=== PATIENT | male | born 1990 | race Caucasian/White ===

== ENCOUNTER 2017-11-24 20:58 | Inpatient (IN) | payer SELFPAY ==
[~2017-11-24 20:58] MED LIST: ISOVUE-370 76%-LOCM 1 ML ONE
[2017-11-24 21:27] LABS: #Basophils 0.1 thou/uL (0.0-0.2); #Lymphocytes 2.1 thou/uL (1.20-3.40); #Monocytes 0.7 thou/uL (0.11-0.59); #Neutrophils 7.7 thou/uL (1.40-6.50); %Basophils 0.5 % (0.0-1.0); %Eosinophils 0.3 % (0.0-10.0); %Monocytes 6.7 % (0.0-10.0); %Neutrophils 72.5 % (42.0-75.0); Mean Corpuscular HGB CONC 34.3 g/dL (32.0-36.0); Mean Corpuscular Hemoglobin 29.2 pg (27.0-31.0); Mean Corpuscular Volume 85.1 fl (80.0-94.0); Mean Platelet Volume 9.8 fL (7.4-10.4); Platelet Count 143 thou/uL (130-400); RBC Distribution Width 13.4 % (11.5-14.5); Red Blood Cell (RBC) Count 4.78 mill/uL (4.70-6.10); White Blood Cell (WBC) Count 10.6 thou/uL (4.8-10.8)
[2017-11-24 21:33] LABS: INR-International Normal Ratio 1.1; PTT 24.3 SEC (22.9-36.1); Prothrombin Time 14.7 SEC (12.0-14.7)
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
[2017-11-24 21:39] LABS: ALT (SGPT) 14 U/L (8-55); AST (SGOT) 20 U/L (5-34); Albumin 4.3 g/dL (3.5-5.0); Alcohol 218 mg/dL (Less than 10); Alkaline Phosphatase 58 U/L (40-150); Anion Gap 12 mmol/L (10-20); BUN (Urea Nitrogen) 12 mg/dL (8.9-20.6); Bilirubin, Total 0.4 mg/dL (0.2-1.2); Calc. Creatinine Clearance 0 mL/min (70-130); Calcium 8.8 mg/dL (7.8-10.44); Carbon Dioxide 26 mmol/L (22-29); Chloride 105 mmol/L (98-107); Estimated GFR-MDRD Greater than 90; Glucose 94 mg/dL (70-105); Lipase 26 U/L (8-78); Potassium 3.8 mmol/L (3.5-5.1); Protein, Total 7.3 g/dL (6.0-8.3); Sodium 139 mmol/L (136-145)
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
[2017-11-25] MEDS ORDERED: Ondansetron ODT 4 MG TAB PO PRN (00:20)
[2017-11-25] MEDS ORDERED: hydrALAZINE 20 MG/ML VIAL SLOW IVP PRN (00:20)
[2017-11-25] MEDS ORDERED: Ondansetron HCl/PF 4 MG/2 ML Vial IVP PRN ×2 (00:20→10:43)
[2017-11-25] MEDS ORDERED: Dextrose 5% in Water 1,000 ML IV PRN (00:20)
[2017-11-25] MEDS ORDERED: Morphine 4 MG/ML Carpuject IVP PRN (00:20)
[2017-11-25] MEDS ORDERED: Dextrose 50% Abboject 50 ML SYRINGE SLOW IVP PRN (00:20)
[2017-11-25] MEDS ORDERED: Morphine 4 MG/ML VIAL SLOW IVP PRN ×2 (00:26)
[2017-11-25 02:08] VITALS: BMI 25.8
[2017-11-25] MEDS: Acetaminophen 500 MG TAB PO SCH ×4 (02:14→17:04)
[2017-11-25] MEDS: Sodium Chloride 0.9% 1,000 ML IV SCH ×3 (02:15→17:32)
[2017-11-25 05:39] LABS: #Lymphocytes 2.5 thou/uL (1.20-3.40); #Neutrophils 7.5 thou/uL (1.40-6.50); %Basophils 0.3 % (0.0-1.0); %Eosinophils 0.3 % (0.0-10.0); %Lymphocytes 22.2 % (21.0-51.0); %Neutrophils 68.1 % (42.0-75.0); Hemoglobin 13.8 g/dL (14.0-18.0); Mean Corpuscular HGB CONC 34.6 g/dL (32.0-36.0); Mean Corpuscular Hemoglobin 29.4 pg (27.0-31.0); Mean Corpuscular Volume 84.9 fl (80.0-94.0); Mean Platelet Volume 9.7 fL (7.4-10.4); Platelet Count 126 thou/uL (130-400); RBC Distribution Width 13.6 % (11.5-14.5); Red Blood Cell (RBC) Count 4.68 mill/uL (4.70-6.10); White Blood Cell (WBC) Count 11.1 thou/uL (4.8-10.8)
[2017-11-25] MEDS: CEFAZOLIN 1 GM in Sodium Chloride 0.9% 100 ML IVPB SCH ×2 (05:51→15:49)
[2017-11-25] MEDS: Ketorolac Tromethamine 30 MG/ML VIAL IVP SCH ×3 (05:52→16:57)
[2017-11-25 06:02] LABS: Anion Gap 14 mmol/L (10-20); BUN (Urea Nitrogen) 12 mg/dL (8.9-20.6); Calc. Creatinine Clearance 183 mL/min (70-130); Calcium 8.7 mg/dL (7.8-10.44); Carbon Dioxide 22 mmol/L (22-29); Chloride 109 mmol/L (98-107); Estimated GFR-MDRD Greater than 90; Glucose 85 mg/dL (70-105); Sodium 141 mmol/L (136-145)
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
[2017-11-25] MEDS ORDERED: Famotidine/PF 20 mg/2ml Vial SLOW IVP SCH (09:00)
[2017-11-25] MEDS ORDERED: HYDROmorphone 0.5 MG/0.5 ML SYRINGE ONE (10:02)
[2017-11-25] MEDS ORDERED: Fentanyl 100 MCG/2 ML VIAL ONE (10:02)
[2017-11-25] MEDS ORDERED: Neomycin-Polymyxin 1 ML AMP ONE (10:11)
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
[2017-11-25] MEDS ORDERED: Promethazine HCl 25 MG/ML VIAL SLOW IVP PRN (10:43)
[2017-11-25] MEDS ORDERED: Promethazine HCl 25 MG/ML VIAL IM PRN (10:43)
[2017-11-25] MEDS ORDERED: HYDROmorphone 2 MG/ML VIAL SLOW IVP PRN (10:43)
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
[2017-11-25] MEDS ORDERED: Bupivacaine HCl 0.5%/Epinephrine 1:200,000/PF 30 ml Vial ONE (11:15)
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
[2017-11-25] MEDS ORDERED: Ketorolac Tromethamine 30 MG/ML VIAL ONE (12:04)
[2017-11-25] MEDS ORDERED: PROPOFOL 200 MG/20 ML VIAL ONE (12:04)
[2017-11-25] MEDS ORDERED: Succinylcholine Chloride 20 MG/ML 10 ml SYRINGE FS ONE (12:04)
[2017-11-25] MEDS ORDERED: Lidocaine 1% PF 5 ML VIAL ONE (12:04)
[2017-11-25] MEDS ORDERED: Dexamethasone 20 MG/5 ML VIAL ONE (12:04)
--- NOTE | 2017-11-25 12:59 | OP ---
DATE OF OPERATION: 11/25/2017 PREOPERATIVE DIAGNOSIS: Laceration of the anterior aspect of the left knee, laceration is stellate, measured approximately 5 cm in length. POSTOPERATIVE DIAGNOSIS: Laceration of the anterior aspect of the left knee, laceration is stellate, measured approximately 5 cm in length. The laceration extending into the prepatellar bursa, but not into the knee joint. PROCEDURE: Irrigation and debridement of anterior left knee wound with primary closure of 5 cm wound . SURGEON: Petr Solorio M.D. ANESTHESIA: General. TECHNIQUE: The patient was given preoperative IV antibiotics, taken to the operating room, placed in supine position. Satisfactory general anesthesia was performed. Anterior aspect of the left knee w as sterilely prepped and draped in usual fashion. The injured portions of the skin edges were remove d sharply with scissors and scalpel. There were some areas of the prepatellar bursa that was also qu estionable and was removed sharply. The wound did not go into the knee joint. The wound was then co piously irrigated with antibiotic solution using the high-speed x ray technologist and the wound was then clos ed using #1 Vicryl for the fat and subcutaneous tissue, and skin was closed with 3-0 Rapide. The wou nd was infiltrated with 30 mL 0.5% Marcaine with epinephrine. Sterile dressing was applied. The pat ient was awakened, extubated, and transferred to the recovery room in stable condition. ESTIMATED BLOOD LOSS: 30 mL COMPLICATIONS: None. Patient will be able to be discharged later today. DISCHARGE MEDICATIONS: Augmentin 875 mg 1 twice a day, #15; [place] 10 one every 6 hours as needed for pain, #40. Follow up in my office in 2 weeks.
[2017-11-25 20:53] VITALS: BP 106/67; TEMP 97.9
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
--- NOTE | 2017-11-27 12:50 | PQF ---
Ike Mcgowan WADE W MD [id number] SURG B- [id number] CLINICAL DOCUMENTATION CLARIFICATION FORM: POST DISCHARGE DATE: 11/27/2017 ATTN: Dr. Solorio Please exercise your independent, professional judgment in responding to the clarification form. Clinical indicators are provided on the bottom of this form for your review Please check appropriate box(s): [ ] Excisional Debridement: [ ] Excised [ ] Cut away [ ] Other: Depth / layer: (deepest layer of debridement): [ ] Skin[ ] SubQ Tissue [ ] Bursa [ ] Fascia [ ] Muscle [ ] Tendon [ ] Bone Appearance of wound: (e.g., down to fresh bleeding tissue, etc.)___ Margins: (please specify): / x x Instruments used: [ ] Scissors [ ] Scalpel [ ] Curette [ ] Soft tissue clipper [ ] Other: [ ] Non-excisional Debridement: (Removal by flushing, brushing, chemical, or washing) Depth / layer: (deepest layer of debridement): [ ] Skin[ ] Subcutaneous [ ] Fascia [ ] Muscle [ ] Tendon [ ] Bone [ ] Other procedure diagnosis (please specify) [ ] Unable to determine For continuity of documentation, please document condition throughout progress notes and discharge summary. Thank You. CLINICAL INDICATORS - SIGNS / SYMPTOMS / LABS Per OP report: The injured portions of the skin edges were removed sharply with scissors and scalpel. There were some areas of the prepatellar bursa that was also questionable and was removed sharply. RISK FACTORS Per OP report: Laceration of anterior aspect of the left knee extending into the prepatellar bursa. TREATMENTS: Per OP report: Irrigation and debridement of anterior left knee wound with primary closure of 5 cm wound. (This form is maintained as a part of the permanent medical record) 2014 [employer]. All Rights Reserved Farhana [email or web address] [phone] ANEUDY
== END 2017-11-25 18:15 | disposition home or self-care (01) | DRG 989 ==
LOC: ERS 20:58 → SURG B 11-25 01:39
PROVIDERS: ADMIT Specialist; ATTEND Specialist
PROC: 0MBP0ZZ Excision of Left Knee Bursa and Ligament, Open Approach (ICD-10-PCS; principal; 2017-11-25)
DX: S81.012A Laceration without foreign body, left knee, initial encounter (principal); S62.610A Displaced fracture of proximal phalanx of right index finger, initial encounter for closed fracture; G89.11 Acute pain due to trauma; F10.129 Alcohol abuse with intoxication, unspecified; Y90.7 Blood alcohol level of 200-239 mg/100 ml; F17.220 Nicotine dependence, chewing tobacco, uncomplicated; V86.59XA Driver of other special all-terrain or other off-road motor vehicle injured in nontraffic accident, initial encounter; Z23 Encounter for immunization
CPT/HCPCS: 36415; 70450; 71260; 72125; 74177; 80048; 80053; 80307; 83690; 85025; 85610; 85730; 90471; 96374; 96375; 99406; G0390; G8978-GP-CL; G8979-GP-CL; G8980-GP-CL; J0670; J0690; J1100; J1170; J1885; J2001; J2704; J3010; J7050; Q0162

== ENCOUNTER 2020-01-04 20:54 | Emergency (ER) | payer BC, SELFPAY ==
--- NOTE | 2020-01-05 08:08 | RAD ---
RIGHT THUMB RADIOGRAPHS 3 VIEWS: DATE: 01/04/2020. PROVIDED CLINICAL HISTORY: Pain status post injury. FINDINGS: No evidence for a fracture or other acute osseous abnormality. If there is persistent clinical ashleigh rn, conservative management and followup imaging are advised. IMPRESSION: As above. POS: [facility]
--- NOTE | 2020-01-05 08:13 | RAD ---
RIGHT HAND RADIOGRAPHS 3 VIEWS: DATE: 01/04/2020. PROVIDED CLINICAL HISTORY: Pain. FINDINGS: Comparison is made with the examination dated 11/24/2017. There is interval healing of the previously described 2nd proximal phalangeal fracture, with radial displacement of the distal fragment with res pect to the proximal fragment. There is no evidence for an acute fracture or other acute osseous abn ormality. Alignment appears otherwise anatomic. Joint spaces appear preserved. IMPRESSION: No evidence for an acute osseous abnormality. If there is persistent clinical concern, conservative management and followup imaging are advised. POS: [facility]
== END 2020-01-04 21:44 | disposition home or self-care (01) ==
LOC: ERS 20:54
DX: S60.221A Contusion of right hand, initial encounter (principal); F17.220 Nicotine dependence, chewing tobacco, uncomplicated; W19.XXXA Unspecified fall, initial encounter